=== PATIENT | male | born 1955 | race Caucasian/White ===

== ENCOUNTER 2019-09-26 11:47 | Inpatient (IN) | payer BC ==
[~2019-09-26] VITALS: Ht 177.8 cm; Wt 97.9 kg
[2019-09-26] MEDS ORDERED: REGADENOSON 0.4 MG/5 ML SYRINGE ONE (11:54)
[2019-09-26] MEDS ORDERED: AMINOPHYLLINE 25 MG/ML, 10ML ONE (11:55)
--- NOTE | 2019-09-26 11:56 | NUR ---
PT BIB EMS FOR EKG CHANGES DURING STRESS TEST ACCOMPANIED 8/10 CHEST PAIN THAT RADIATED ACROSS THE CHEST TO THE BACK. PT GOT 1 NITRO AND 325MG ASPIRIN CURB ATTENDANT. PT REPORTS 0/10 CP CURRENTLY. PT CONNECTED TO MONITORING EQUIPMENT. LABS DRAWN. EKG COMPLETE. PT RESTING IN [facility]. [employer]
--- NOTE | 2019-09-26 12:13 | NUR ---
Pharmacy called for heprin dose
[2019-09-26 12:14] LABS: INTERNATIONAL NORMALIZED RATIO 1.02 (0.93-1.1); PROTHROMBIN TIME 10.8 Seconds (9.6-11.5)
[2019-09-26 12:17] LABS: MEAN CORPUSCULAR HEMOGLOBIN 18.5 pg (27.5-34.5); MEAN CORPUSCULAR VOLUME 62.2 fL (81-97); MEAN PLATELET VOLUME 8.9 fL (7.4-10.4); PLATELET COUNT 327 x10^3/uL (130-400); RED BLOOD COUNT 6.15 x10^6/uL (4.38-5.82); RED CELL DISTRIBUTION WIDTH 19.5 % (9.4-14.8)
[2019-09-26 12:23] LABS: MEAN CORPUSCULAR HGB CONC 29.8 g/dL (33.2-36.2)
[2019-09-26] MEDS ORDERED: HEPARIN 5,000 UNITS/ML, 1ML ONE (12:23)
[2019-09-26 12:24] LABS: BASOPHILS % (AUTO) 0 % (0-1); EOSINOPHILS # (AUTO) 0.47 x10^3/uL (0-0.4); EOSINOPHILS % (AUTO) 4 % (1-7); LYMPHOCYTES # (AUTO) 1.41 x10^3/uL (1-3.4); LYMPHOCYTES % (AUTO) 12 % (22-44); MD MORPH REVIEW ONLY; MONOCYTES # (AUTO) 0.48 x10^3/uL (0.2-0.8); MONOCYTES % (AUTO) 4 % (2-9); NEUTROPHILS # (AUTO) 9.53 x10^3/uL (1.8-6.8); NEUTROPHILS % (AUTO) 80 % (42-75)
[2019-09-26] MEDS ORDERED: HEPARIN 25,000 UNITS/250ML PMX 250 ML ONE (12:24)
[2019-09-26 12:26] LABS: <PLATELET ESTIMATE> ADEQUATE; <PLT MORPHOLOGY> NORMAL PLT MORPH; ANISOCYTOSIS 1+; HYPOCHROMIA 1+; MICROCYTOSIS 2+; POLYCHROMASIA 1+
[2019-09-26 12:27] LABS: ALBUMIN 3.9 g/dL (3.4-5.0); ANION GAP 8 mmol/L (5-15); CALCIUM 9.3 mg/dL (8.5-10.1); CHLORIDE 104 mmol/L (98-107); CHOLESTEROL, TOTAL 157 mg/dL (140-239)
[2019-09-26 12:28] LABS: OVALOCYTES 2+
[2019-09-26 12:29] LABS: ECHINOCYTES 1+
[2019-09-26 12:30] LABS: ALANINE AMINOTRANSFERASE 26 U/L (12-78); ALKALINE PHOSPHATASE 60 U/L (45-117); BILIRUBIN,TOTAL 0.3 mg/dL (0.2-1.0); CHOL/HDL RATIO 2.9; CREATININE 1.14 mg/dL (0.7-1.3); HDL CHOL % 35 % (26-37); HDL CHOLESTEROL (DIRECT) 55 mg/dL (40-60); LDL CHOLESTEROL,CALCULATED 41 mg/dL (54-169); LDL/HDL RATIO 0.7 (0.5-3.0); TRIGLYCERIDES 306 mg/dL (50-200); VLDL CHOLESTEROL 61 mg/dL (0-25)
[2019-09-26] MEDS ORDERED: HEPARIN 5,000 UNITS/ML, 1ML IV ONE (12:30)
[2019-09-26 12:34] LABS: TROPONIN I 0.265 ng/mL (0.000-0.045)
[2019-09-26] MEDS: HEPARIN 25,000 UNITS/250ML PMX 250 ML IV PRN (12:37)
[2019-09-26] MEDS ORDERED: LISI-170 PO (12:53)
[2019-09-26] MEDS ORDERED: TRAZ150T62 PO (12:53)
[2019-09-26] MEDS ORDERED: SIMV20TA19 PO (12:53)
[2019-09-26] MEDS ORDERED: METF500T17 PO (12:53)
[2019-09-26] MEDS ORDERED: METO-99 PO (12:53)
[2019-09-26] MEDS ORDERED: CLOP75TA PO (12:53)
[2019-09-26] MEDS ORDERED: INSU100C5 SQ-INSULIN (12:53)
[2019-09-26] MEDS ORDERED: CLON0.1T22 PO (12:53)
[2019-09-26] MEDS ORDERED: PANT40TA5 PO (12:53)
[2019-09-26] MEDS ORDERED: INSU100V8 SQ (12:53)
[2019-09-26] MEDS ORDERED: EXEN10PE3 SQ (12:53)
[2019-09-26] MEDS ORDERED: HYDR25TA6 PO (12:53)
--- NOTE | 2019-09-26 12:55 | NUR ---
CARDIOLOGY IN ROOM
[2019-09-26] MEDS ORDERED: GUAIFENESIN/DM 200-20MG, 10ML UDC PO PRN (13:00)
[2019-09-26] MEDS ORDERED: ONDANSETRON 2MG/ML, 2ML IVPush PRN (13:00)
[2019-09-26] MEDS ORDERED: hydrALAzine 20 MG/ML, 1ML IVPush PRN (13:00)
[2019-09-26] MEDS ORDERED: BACLOFEN 10 MG TABLET PO PRN (13:00)
[2019-09-26] MEDS ORDERED: ONDANSETRON ODT 4 MG PO PRN (13:00)
[2019-09-26] MEDS ORDERED: OXYcodone IR 5MG TABLET PO PRN (13:00)
[2019-09-26] MEDS ORDERED: SODIUM CHLORIDE FLUSH 10ML SYR IVF ONE (13:00)
[2019-09-26] MEDS ORDERED: MELATONIN 5 MG TABLET PO PRN (13:00)
[2019-09-26] MEDS ORDERED: LABETALOL 5MG/ML, 20ML IVPush PRN (13:00)
[2019-09-26] MEDS ORDERED: FURO20TA3 PO (13:32)
--- NOTE | 2019-09-26 14:10 | NUR ---
Pt ambulated to restroom with steady gait. Calm, not pain, rr even and unlabored.
[2019-09-26] MEDS ORDERED: BUTALB/APAP/CAFFEINE 50MG/325MG/40MG PO PRN (14:30)
[2019-09-26] MEDS ORDERED: ASPIRIN 81 MG TABLET EC PO ONE (14:30)
--- NOTE | 2019-09-26 17:09 | NUR ---
DIET TRAY GIVEN
[2019-09-26] MEDS: SODIUM CHLORIDE 0.9% 1,000 ML IV SCH (17:17)
[2019-09-26 18:28] VITALS: BP 116/56
[2019-09-26] MEDS: CARVEDILOL 25 MG TABLET PO SCH (18:29)
[2019-09-26] MEDS: HEPARIN 5,000 UNITS/ML, 1ML IV PRN (21:43)
[2019-09-26] MEDS: TRAZODONE 150MG TABLET PO SCH (21:44)
[2019-09-27 04:00] VITALS: BP 108/65
[2019-09-27 04:20] LABS: MEAN CORPUSCULAR HEMOGLOBIN 18.7 pg (27.5-34.5); MEAN CORPUSCULAR HGB CONC 30.1 g/dL (33.2-36.2); MEAN PLATELET VOLUME 8.9 fL (7.4-10.4); PLATELET COUNT 286 x10^3/uL (130-400); RED BLOOD COUNT 5.35 x10^6/uL (4.38-5.82); RED CELL DISTRIBUTION WIDTH 19.4 % (9.4-14.8)
[2019-09-27 04:28] LABS: ALANINE AMINOTRANSFERASE 26 U/L (12-78); ALBUMIN 3.3 g/dL (3.4-5.0); ANION GAP 6 mmol/L (5-15); CALCIUM 9.1 mg/dL (8.5-10.1); CHLORIDE 106 mmol/L (98-107); CREATININE 1.32 mg/dL (0.7-1.3)
[2019-09-27 04:30] LABS: ALKALINE PHOSPHATASE 49 U/L (45-117); BILIRUBIN,TOTAL 0.2 mg/dL (0.2-1.0); TOTAL PROTEIN 6.9 g/dL (6.4-8.2)
[2019-09-27] MEDS: SODIUM CHLORIDE 0.9% 1,000 ML IV SCH ×5 (05:23→20:51)
[2019-09-27] MEDS: HEPARIN 5,000 UNITS/ML, 1ML IV PRN ×2 (05:24→12:02)
[2019-09-27] MEDS: CARVEDILOL 25 MG TABLET PO SCH ×2 (05:25→18:51)
[2019-09-27 05:45] LABS: BASOPHILS # (AUTO) 0.07 x10^3/uL (0-0.1); BASOPHILS % (AUTO) 1 % (0-1); EOSINOPHILS # (AUTO) 0.37 x10^3/uL (0-0.4); EOSINOPHILS % (AUTO) 4 % (1-7); LYMPHOCYTES # (AUTO) 2.15 x10^3/uL (1-3.4); LYMPHOCYTES % (AUTO) 23 % (22-44); MD SCAN; MONOCYTES % (AUTO) 7 % (2-9); NEUTROPHILS # (AUTO) 6.24 x10^3/uL (1.8-6.8); NEUTROPHILS % (AUTO) 66 % (42-75)
[2019-09-27 08:18] VITALS: BP 117/74
[2019-09-27] MEDS: SENNA/DOCUSATE TABLET PO SCH (08:54)
[2019-09-27] MEDS ORDERED: SODIUM CHLORIDE 0.9% 1,000 ML IV SCH ×2 (11:00→12:00)
[2019-09-27] MEDS: HEPARIN 25,000 UNITS/250ML PMX 250 ML IV PRN (11:43)
[2019-09-27] MEDS: FERROUS GLUCONATE 324 MG TABLET PO SCH (11:46)
[2019-09-27] MEDS: IRON SUCROSE COMPLEX 100MG/5ML IV SCH (11:46)
[2019-09-27 12:08] LABS: % IRON SATURATION 7 % (20-55); IRON LEVEL 26 mcg/dL (65-175); TOTAL IRON BINDING CAPACITY 379 mcg/dL (250-450)
[2019-09-27 12:35] VITALS: BP 135/80
[2019-09-27] MEDS ORDERED: VERAPAMIL 2.5 MG/ML, 2ML ONE (13:28)
[2019-09-27] MEDS ORDERED: LIDOCAINE-MPF 1%, 5ML ONE (13:28)
[2019-09-27] MEDS ORDERED: BIVALIRUDIN 250 MG ONE (13:28)
[2019-09-27] MEDS ORDERED: FENTANYL PF 100 MCG/2ML ONE (13:28)
[2019-09-27] MEDS ORDERED: MIDAZOLAM 1 MG/ML, 5ML ONE (13:28)
[2019-09-27] MEDS ORDERED: TICAGRELOR 90 MG TABLET ONE (13:28)
[2019-09-27] MEDS ORDERED: HEPARIN 1,000 UNITS/ML, 10ML ONE (13:28)
[2019-09-27 20:00] VITALS: BP 127/74
[2019-09-27] MEDS: TRAZODONE 150MG TABLET PO SCH (20:56)
[2019-09-27] MEDS: ATORVASTATIN 80 MG TABLET PO SCH (20:56)
[2019-09-28 01:10] VITALS: BP 150/77
[2019-09-28 04:45] LABS: MEAN CORPUSCULAR HEMOGLOBIN 18.5 pg (27.5-34.5); MEAN CORPUSCULAR VOLUME 61.5 fL (81-97); MEAN PLATELET VOLUME 8.9 fL (7.4-10.4); PLATELET COUNT 269 x10^3/uL (130-400); RED BLOOD COUNT 5.46 x10^6/uL (4.38-5.82); RED CELL DISTRIBUTION WIDTH 19.3 % (9.4-14.8)
[2019-09-28 04:46] LABS: ANION GAP 3 mmol/L (5-15); CALCIUM 8.9 mg/dL (8.5-10.1); CHLORIDE 111 mmol/L (98-107); CREATININE 1.07 mg/dL (0.7-1.3)
[2019-09-28 05:07] LABS: BASOPHILS # (AUTO) 0.03 x10^3/uL (0-0.1); BASOPHILS % (AUTO) 0 % (0-1); EOSINOPHILS # (AUTO) 0.58 x10^3/uL (0-0.4); EOSINOPHILS % (AUTO) 7 % (1-7); LYMPHOCYTES # (AUTO) 1.71 x10^3/uL (1-3.4); LYMPHOCYTES % (AUTO) 20 % (22-44); MONOCYTES # (AUTO) 0.64 x10^3/uL (0.2-0.8); MONOCYTES % (AUTO) 8 % (2-9); NEUTROPHILS # (AUTO) 5.62 x10^3/uL (1.8-6.8); NEUTROPHILS % (AUTO) 66 % (42-75)
[2019-09-28 05:08] LABS: MD SCAN
[2019-09-28] MEDS: CARVEDILOL 25 MG TABLET PO SCH ×2 (05:39→17:18)
[2019-09-28] MEDS: HEPARIN 5,000 UNITS/ML, 1ML IV PRN ×2 (05:39→12:54)
[2019-09-28] MEDS: SODIUM CHLORIDE 0.9% 1,000 ML IV SCH (05:40)
[2019-09-28] MEDS: ACETAMINOPHEN 325 MG TABLET PO PRN ×2 (05:45→17:18)
[2019-09-28 08:48] VITALS: BP 123/69
[2019-09-28] MEDS ORDERED: LOSARTAN 25MG TABLET PO SCH (09:00)
[2019-09-28] MEDS: SENNA/DOCUSATE TABLET PO SCH (09:00)
[2019-09-28] MEDS: IRON SUCROSE COMPLEX 100MG/5ML IV SCH (10:36)
[2019-09-28] MEDS: ASPIRIN 81 MG TABLET EC PO SCH (10:36)
[2019-09-28] MEDS: FERROUS GLUCONATE 324 MG TABLET PO SCH (10:36)
[2019-09-28] MEDS: HEPARIN 25,000 UNITS/250ML PMX 250 ML IV PRN (12:33)
[2019-09-28] MEDS: INSULIN LISPRO 100 UNITS/ML, PEN SQ-INSULIN SCH ×3 (12:54→20:19)
[2019-09-28 14:00] VITALS: BP 169/89
[2019-09-28] MEDS ORDERED: CALCIUM CARBONATE 500 MG TAB.CHEW ONE (17:13)
[2019-09-28] MEDS ORDERED: CHLORHEXIDINE 15 ML UDC MM PRN (17:30)
[2019-09-28] MEDS ORDERED: CALCIUM CARBONATE 500 MG TAB.CHEW PO PRN (17:30)
[2019-09-28 18:33] LABS: ALANINE AMINOTRANSFERASE 32 U/L (12-78); ALBUMIN 3.9 g/dL (3.4-5.0); ANION GAP 7 mmol/L (5-15); CALCIUM 9.3 mg/dL (8.5-10.1); CHLORIDE 105 mmol/L (98-107); CREATININE 1.02 mg/dL (0.7-1.3)
[2019-09-28 18:35] LABS: ALKALINE PHOSPHATASE 56 U/L (45-117); BILIRUBIN,TOTAL 0.2 mg/dL (0.2-1.0); TOTAL PROTEIN 7.9 g/dL (6.4-8.2)
[2019-09-28 18:38] LABS: MEAN CORPUSCULAR HEMOGLOBIN 18.7 pg (27.5-34.5); MEAN CORPUSCULAR HGB CONC 30.8 g/dL (33.2-36.2); MEAN CORPUSCULAR VOLUME 60.9 fL (81-97); MEAN PLATELET VOLUME 9.3 fL (7.4-10.4); PLATELET COUNT 274 x10^3/uL (130-400); RED BLOOD COUNT 5.89 x10^6/uL (4.38-5.82); RED CELL DISTRIBUTION WIDTH 19.3 % (9.4-14.8)
[2019-09-28 19:00] LABS: ANISOCYTOSIS 1+; BASOPHILS # (AUTO) 0.07 x10^3/uL (0-0.1); BASOPHILS % (AUTO) 1 % (0-1); EOSINOPHILS # (AUTO) 0.52 x10^3/uL (0-0.4); EOSINOPHILS % (AUTO) 5 % (1-7); LYMPHOCYTES # (AUTO) 1.85 x10^3/uL (1-3.4); LYMPHOCYTES % (AUTO) 17 % (22-44); MD MORPH REVIEW ONLY; MONOCYTES # (AUTO) 0.77 x10^3/uL (0.2-0.8); MONOCYTES % (AUTO) 7 % (2-9); NEUTROPHILS # (AUTO) 7.56 x10^3/uL (1.8-6.8); NEUTROPHILS % (AUTO) 70 % (42-75)
[2019-09-28 19:01] LABS: HYPOCHROMIA 2+; MICROCYTOSIS 2+; OVALOCYTES 2+
[2019-09-28 19:02] LABS: <PLATELET ESTIMATE> ADEQUATE; LARGE PLATELETS 1+; POLYCHROMASIA 1+; TEAR DROPS 1+
[2019-09-28 19:21] LABS: INTERNATIONAL NORMALIZED RATIO 1.02 (0.93-1.1); PROTHROMBIN TIME 10.8 Seconds (9.6-11.5)
[2019-09-28] MEDS: ATORVASTATIN 80 MG TABLET PO SCH (20:12)
[2019-09-28] MEDS: TRAZODONE 150MG TABLET PO SCH (20:18)
[2019-09-28 20:21] VITALS: BP 139/81
[2019-09-28 21:46] LABS: MICROSCOPIC AUTO
[2019-09-28] MEDS: MUPIROCIN OINT 2%, 22GM TP SCH (22:02)
[2019-09-29] MEDS: ACETAMINOPHEN 325 MG TABLET PO PRN (00:23)
[2019-09-29 00:26] VITALS: BP 135/78
[2019-09-29] MEDS: HEPARIN 5,000 UNITS/ML, 1ML IV PRN (02:59)
[2019-09-29 03:57] VITALS: BP_SYST 129; BP_SYST 137; BP_DIAS 75
[2019-09-29 04:59] LABS: MEAN CORPUSCULAR HEMOGLOBIN 18.4 pg (27.5-34.5); MEAN CORPUSCULAR VOLUME 61.8 fL (81-97); MEAN PLATELET VOLUME 9.4 fL (7.4-10.4); PLATELET COUNT 249 x10^3/uL (130-400); RED BLOOD COUNT 5.56 x10^6/uL (4.38-5.82); RED CELL DISTRIBUTION WIDTH 19.4 % (9.4-14.8)
[2019-09-29 05:06] LABS: ANION GAP 7 mmol/L (5-15); CALCIUM 9.6 mg/dL (8.5-10.1); CHLORIDE 109 mmol/L (98-107)
[2019-09-29 05:10] LABS: CREATININE 0.95 mg/dL (0.7-1.3)
[2019-09-29 05:13] LABS: MEAN CORPUSCULAR HGB CONC 29.7 g/dL (33.2-36.2)
[2019-09-29] MEDS: ASPIRIN 81 MG TABLET EC PO SCH (05:20)
[2019-09-29] MEDS: CARVEDILOL 25 MG TABLET PO SCH (05:20)
[2019-09-29] MEDS: MUPIROCIN OINT 2%, 22GM TP SCH (05:21)
[2019-09-29] MEDS: INSULIN LISPRO 100 UNITS/ML, PEN SQ-INSULIN SCH ×2 (05:21→11:00)
[2019-09-29 05:57] LABS: BASOPHILS # (AUTO) 0.11 x10^3/uL (0-0.1); BASOPHILS % (AUTO) 1 % (0-1); EOSINOPHILS % (AUTO) 6 % (1-7); LYMPHOCYTES # (AUTO) 1.94 x10^3/uL (1-3.4); LYMPHOCYTES % (AUTO) 17 % (22-44); MD SCAN; MONOCYTES # (AUTO) 0.87 x10^3/uL (0.2-0.8); MONOCYTES % (AUTO) 8 % (2-9); NEUTROPHILS # (AUTO) 7.94 x10^3/uL (1.8-6.8); NEUTROPHILS % (AUTO) 69 % (42-75)
[2019-09-29] MEDS ORDERED: HEPARIN 1,000 UNITS/ML, 10ML ONE ×2 (06:10→14:19)
[2019-09-29] MEDS ORDERED: PAPAVERINE 30 MG/ML, 2ML ONE (06:10)
[2019-09-29] MEDS ORDERED: MIDAZOLAM 10MG/2 ML ONE ×3 (06:51→16:00)
[2019-09-29] MEDS ORDERED: FENTANYL PF 250 MCG/5ML ONE ×6 (06:51→16:00)
[2019-09-29] MEDS ORDERED: CEFUROXIME 1.5 GM in SODIUM CHLORIDE 0.9% 50 ML IVPB PRN (07:30)
[2019-09-29] MEDS ORDERED: VANCOMYCIN 1,500 MG in SODIUM CHLORIDE 0.9% 250 ML IVPB PRN (07:30)
[2019-09-29] MEDS: FERROUS GLUCONATE 324 MG TABLET PO SCH (08:00)
[2019-09-29] MEDS: SENNA/DOCUSATE TABLET PO SCH (09:00)
[2019-09-29] MEDS ORDERED: AMINOCAPROIC ACID 250 MG/ML, 20ML ONE ×2 (10:03)
[2019-09-29] MEDS ORDERED: ROCURONIUM 10MG/ML,5ML ONE ×3 (10:03)
[2019-09-29] MEDS ORDERED: PROPOFOL 10 MG/ML, 20ML ONE (10:03)
[2019-09-29] MEDS ORDERED: PROTAMINE SULFATE 10 MG/ML, 25ML ONE ×2 (10:03)
[2019-09-29] MEDS ORDERED: CALCIUM CHLORIDE 10%, 10ML SYR ONE (11:05)
[2019-09-29] MEDS ORDERED: DEXMEDETOMIDINE 200 MCG in SODIUM CHLORIDE 0.9% 48 ML IV PRN ×2 (12:30→13:37)
[2019-09-29] MEDS ORDERED: POTASSIUM CHLORIDE 80 MEQ, SODIUM BICARBONATE 8.4% 10 MEQ, MAGNESIUM SULFATE 0.5 GM, LI... IV PRN (12:30)
[2019-09-29] MEDS ORDERED: EPINEPHRINE 5 MG in SODIUM CHLORIDE 0.9% 245 ML IV PRN ×2 (12:30→14:00)
[2019-09-29] MEDS ORDERED: ALBUMIN HUMAN 5% 500 ML IV PRN (12:30)
[2019-09-29] MEDS ORDERED: REGULAR INSULIN 100 UNITS in SODIUM CHLORIDE 0.9% 99 ML IV PRN ×2 (12:30→13:37)
[2019-09-29] MEDS ORDERED: PHENYLEPHRINE 50 MG in SODIUM CHLORIDE 0.9% 245 ML IV PRN ×2 (12:30→13:37)
[2019-09-29] MEDS ORDERED: MANNITOL PMX 20% 500 ML IVPB PRN (12:30)
[2019-09-29] MEDS ORDERED: MILRINONE 1 MG/ML, 10ML IV ONE (12:36)
[2019-09-29] MEDS ORDERED: DOBUTAMINE 250 MG in SODIUM CHLORIDE 0.9% 230 ML IV PRN (13:37)
[2019-09-29] MEDS ORDERED: SODIUM CHLORIDE 0.9% 1,000 ML IV PRN (13:37)
[2019-09-29] MEDS ORDERED: VASOPRESSIN 20 UNIT in SODIUM CHLORIDE 0.9% 99 ML IV PRN (13:37)
[2019-09-29] MEDS ORDERED: NITROGLYCERIN/D5W PMX 250 ML IV PRN (13:37)
[2019-09-29] MEDS ORDERED: BISACODYL 5 MG EC TABLET PO PRN (14:00)
[2019-09-29] MEDS ORDERED: ONDANSETRON 2MG/ML, 2ML IVPush PRN (14:00)
[2019-09-29] MEDS ORDERED: DEXTROSE 4 GM TAB.CHEW PO PRN (14:00)
[2019-09-29] MEDS ORDERED: PROCHLORPERAZINE 5 MG/ML, 2ML IVPush PRN (14:00)
[2019-09-29] MEDS ORDERED: BISACODYL 10 MG SUPP PR PRN (14:00)
[2019-09-29] MEDS ORDERED: LACTATED RINGERS 1,000 ML IV PRN (14:00)
[2019-09-29] MEDS ORDERED: ACETAMINOPHEN 325 MG TABLET PO PRN (14:00)
[2019-09-29] MEDS ORDERED: morphine SULFATE 10 MG/ML, 1ML IVPush PRN (14:00)
[2019-09-29] MEDS ORDERED: GLUCAGON 1 MG IM PRN (14:00)
[2019-09-29] MEDS ORDERED: KSCALE TO 4.5 IV SCH (14:00)
[2019-09-29] MEDS ORDERED: HYDROcodone/APAP 10/325 MG TABLET PO PRN (14:00)
[2019-09-29] MEDS ORDERED: MAGNESIUM SULFATE 1 GM in SODIUM CHLORIDE 0.9% 100 ML IVPB SCH (14:00)
[2019-09-29] MEDS ORDERED: MIDAZOLAM 1 MG/ML, 5ML IVPush PRN (14:00)
[2019-09-29] MEDS ORDERED: DEXTROSE 50%, 50ML SYRINGE IVPush PRN (14:00)
[2019-09-29] MEDS ORDERED: OXYcodone IR 5MG TABLET PO PRN (14:00)
[2019-09-29] MEDS ORDERED: ACETAMINOPHEN 650 MG SUPP PR PRN (14:00)
[2019-09-29] MEDS ORDERED: SODIUM BICARB 8.4%, 50ML SYRINGE IV PRN (14:00)
[2019-09-29] MEDS ORDERED: HEPARIN 1,000 UNITS/ML, 30ML ONE ×3 (14:19→17:06)
[2019-09-29] MEDS ORDERED: EPINEPHRINE SYRINGE 0.1 MG/ML, 10ML ONE ×3 (14:26)
[2019-09-29] MEDS ORDERED: DEXAMETHASONE 4 MG/ML, 1ML ONE ×3 (15:43)
[2019-09-29] MEDS ORDERED: DIPHENHYDRAMINE 50 MG/ML, 1ML ONE (15:44)
[2019-09-29] MEDS ORDERED: methylPREDNISolone SOD SUCC 125 MG/2 ML ONE ×3 (15:57→17:06)
[2019-09-29] MEDS ORDERED: INSULIN LISPRO 100 UNITS/ML, PEN SQ-INSULIN SCH (16:00)
[2019-09-29] MEDS ORDERED: VASOPRESSIN 20 UNIT/ML, 1ML ONE (16:03)
[2019-09-29] MEDS ORDERED: SODIUM BICARBONATE 1 MEQ/ML, 50ML VIAL ONE ×2 (17:01→17:06)
[2019-09-29] MEDS ORDERED: LIDOCAINE 2%, 20ML ONE (17:01)
[2019-09-29] MEDS ORDERED: SODIUM BICARB 8.4%, 50ML SYRINGE ONE ×2 (17:01→17:06)
[2019-09-29] MEDS ORDERED: ALBUMIN HUMAN 25% 50 ML ONE (17:01)
[2019-09-29] MEDS ORDERED: PHENYLEPHRINE 10 MG/ML ONE (17:06)
[2019-09-29] MEDS ORDERED: VANCOMYCIN 1,500 MG in SODIUM CHLORIDE 0.9% 250 ML IVPB SCH (19:30)
[2019-09-29] MEDS ORDERED: DOCUSATE 100 MG CAPSULE PO SCH (21:00)
[2019-09-29] MEDS ORDERED: SODIUM CHLORIDE FLUSH 10ML SYR IVF SCH (21:00)
[2019-09-29] MEDS ORDERED: MUPIROCIN OINT 2%, 22GM NAS SCH (21:00)
[2019-09-30] MEDS ORDERED: ASPIRIN 81 MG TABLET EC PO SCH (09:00)
[2019-09-30] MEDS ORDERED: CHLORHEXIDINE 15 ML UDC MM SCH (21:00)
[2019-10-01] MEDS ORDERED: POTASSIUM CHLORIDE 10 MEQ TABLET.ER PO SCH (09:00)
[2019-10-01] MEDS ORDERED: FUROSEMIDE 20 MG/2 ML IV SCH (09:00)
[2019-10-02] MEDS ORDERED: CLOPIDOGREL 75 MG TABLET PO SCH (09:00)
== END 2019-09-29 22:45 | disposition expired | DRG 234 ==
LOC: ED 12:47 → EDIP 12:48 → UNDOADMIN 13:00 → EDIP 13:00 → 5SO 17:47 → CSU 09-29 10:13
PROVIDERS: ADMIT Family Medicine; ATTEND Family Medicine
PROC: 30233N1 Transfusion of Nonautologous Red Blood Cells into Peripheral Vein, Percutaneous Approach (ICD-10-PCS; 2019-09-29)
PROC: 30233R1 Transfusion of Nonautologous Platelets into Peripheral Vein, Percutaneous Approach (ICD-10-PCS; 2019-09-29)
PROC: 4A023N7 Measurement of Cardiac Sampling and Pressure, Left Heart, Percutaneous Approach (ICD-10-PCS; 2019-09-29)
PROC: B2111ZZ Fluoroscopy of Multiple Coronary Arteries using Low Osmolar Contrast (ICD-10-PCS; 2019-09-29)
PROC: B2151ZZ Fluoroscopy of Left Heart using Low Osmolar Contrast (ICD-10-PCS; 2019-09-29)
PROC: 02100Z9 Bypass Coronary Artery, One Artery from Left Internal Mammary, Open Approach (ICD-10-PCS; 2019-09-29)
PROC: 02100AW Bypass Coronary Artery, One Artery from Aorta with Autologous Arterial Tissue, Open Approach (ICD-10-PCS; 2019-09-29)
PROC: 5A02210 Assistance with Cardiac Output using Balloon Pump, Continuous (ICD-10-PCS; 2019-09-29)
PROC: 06BP4ZZ Excision of Right Saphenous Vein, Percutaneous Endoscopic Approach (ICD-10-PCS; 2019-09-29)
PROC: 5A1221Z Performance of Cardiac Output, Continuous (ICD-10-PCS; 2019-09-29)
PROC: 30233K1 Transfusion of Nonautologous Frozen Plasma into Peripheral Vein, Percutaneous Approach (ICD-10-PCS; principal; 2019-09-29 12:30)
DX: I21.4 Non-ST elevation (NSTEMI) myocardial infarction (principal); E87.1 Hypo-osmolality and hyponatremia; D50.9 Iron deficiency anemia, unspecified; I10 Essential (primary) hypertension; E88.81 Metabolic syndrome and other insulin resistance; E78.5 Hyperlipidemia, unspecified; I25.10 Atherosclerotic heart disease of native coronary artery without angina pectoris; J44.9 Chronic obstructive pulmonary disease, unspecified; E66.9 Obesity, unspecified; E11.9 Type 2 diabetes mellitus without complications; D72.829 Elevated white blood cell count, unspecified; D56.9 Thalassemia, unspecified; Z87.891 Personal history of nicotine dependence; Z85.828 Personal history of other malignant neoplasm of skin; Z79.82 Long term (current) use of aspirin; Z79.4 Long term (current) use of insulin; Z68.31 Body mass index [BMI] 31.0-31.9, adult
CPT/HCPCS: 36415; 93458; 96374; 99291; J3490; S0017; 71045; 71046; 80048; 80053; 80061; 81001; 82330; 82803; 82947; 82962; 83036; 83540; 83550; 83735; 83880; 84132; 84295; 84484; 85014; 85025; 85347; 85520; 85610; 85730; 86850; 86900; 86923; 87635; 93005; 93312; 93321; 93325; 94002; 99156; C1769; C1894; G0378; J0171; J0583; J1100; J1644; J1756; J1815; J2250; J2260; J2704; J2720; J2785; J3010; J3370; J3475; J3480; P9045; P9047; C1760; C1762; J0280; J1200; J2370; J2440; J2930; J7030; J7050; P9016; P9017; P9035; Q9967

== ENCOUNTER → 2019-09-26 | Outpatient (CLI) | payer BC ==
[~2019-09-26] MED LIST: CLON0.1T22 PO; CLOP75TA PO; EXEN10PE3 SQ; FURO20TA3 PO; HYDR25TA6 PO; INSU100C5 SQ-INSULIN; INSU100V8 SQ; LISI-170 PO; METF500T17 PO; METO-99 PO; PANT40TA5 PO; REGADENOSON 0.4 MG/5 ML SYRINGE ONE; SIMV20TA19 PO; TRAZ150T62 PO
== END | disposition home or self-care (01) ==
LOC: CFH 08:47
PROVIDERS: ATTEND Internal Medicine Cardiovascular Disease
DX: I25.10 Atherosclerotic heart disease of native coronary artery without angina pectoris (principal); I10 Essential (primary) hypertension
CPT/HCPCS: 78452; 93017; A9502; J2785